=== PATIENT | male | born 1985 | race African-American/Black ===

== ENCOUNTER 2017-01-01 16:59 | Emergency (ER) | payer SELFPAY ==
[2017-01-01 17:26] VITALS: BP 133/109; BMI 33.9
--- NOTE | 2017-01-01 19:23 | DR.RASH ---
HPI - Time Seen Time seen: 19:10 - PCP Primary Care Physician: NFD - Complaint Chief Complaint:: PT C/O HIS SKIN BEING SENSITIVE AND A COLLECTION OF BUMPS TO HIS RIGHT UPPER ABD,, Onset of Chief Complaint: 12/30/16 Self Treatment fo Chief Complaint: GOLD SANCHEZ CREAM AND POWDER,, - Source History Provided: Patient - Mode of Arrival Mode of Arrival: Ambulatory PMH - PM Past Medical History: Yes Past Medical History: Hypertension Past Medical History Comment: NON- COMPLIANT.. Past Surgical History: No - Family History History of Family Medical Conditions: No - Social History Does patient currently use any type of tobacco product: Yes Have you used tobacco products in the last 12 months: Yes Type of Tobacco Use: Cigars How many years tobacco product used: 2 Does any household member use tobacco: No Alcohol Use: None Do you use any recreational Drugs:: No Lives With: Family Lives Where: Home - infectious screening In the last 2 months have you had wt loss of >10#?: NO Have you had fever, night sweats or hemotysis?: No Have you traveled outside the country in the last 6 months?: No Isolation: Airborn/Negative Pressure ROS - Review of Systems Eyes: No Symptoms Reported ENTM: No Symptoms Reported Respiratoy: No Symptoms Reported Cardiovascular: No Symptoms Reported Gastrointestinal/Abdominal: No Symptoms Reported Genitourinary: No Symptoms Reported Neurological: No Symptoms Reported Musculoskeletal: No Symptoms Reported Integumentary: Rash (right flank) Hematologic/Lymphatic: No Symptoms Reported Endocrine: No Symptoms Reported Psychiatric: No Symptoms Reported All Other Systems: Reviewed and Negative PE - Vital Signs Vitals: Pulse Rate 89 Respiratory Rate 20 Blood Pressure 133/109 O2 Sat by Pulse Oximetry 97 - General Limitations: No Limitations General Appearance: Alert, In No Apparent Distress - Head Head Exam: Normal Inspection, Atraumatic - Eyes Eye exam: Normal Appearance, PERRL, EOMI - ENT ENT Exam: Normal Exam External Ear Exam: Normal External Inspection TM/Canal Exam: Bilateral Normal Nasal Speculum Exam: Bilateral Normal Mouth Exam: Normal Inspection Teeth Exam: Normal Inspection - Neck Neck Exam: Normal Inspection, Full ROM - Chest Chest Inspection: Normal Inspection, Symmetric Chest Wall Rise - Respiratory Respiratory Exam: Normal Lung Sounds Bilat Respiratory Exam: Bilateral Clear to Auscultation - Cardiovascular Cardiovascular Exam: Regular Rate, Normal Rhythm - Extremities Extremities Exam: Normal Inspection, Full ROM - Back Back Exam: Normal Inspection - Neurologic Neurological Exam: Alert, Oriented X3, CN II-XII Intact - Psychiatric Psychiatric Exam: Normal Affect - Skin Skin Exam: Warm, Dry, Intact Type of Lesion: Rash (right anterior lateral chest wall) Distribution: Chest Description: Macular, Papular - Diagnosis Discharge Problem: Dermatitis - Discharge Plan Condition: Stable - Follow ups/Referrals Follow ups/Referrals: NFD,None [Primary Care Provider] - 3 days - Instructions
== END 2017-01-01 19:30 | disposition home or self-care (01) ==
LOC: ER 17:38
DX: L30.8 Other specified dermatitis (principal)
CPT/HCPCS: 99281; 99282

== ENCOUNTER 2018-02-18 03:58 | Observation (INO) ==
[2018-02-18 04:15] VITALS: BMI 33.9
--- NOTE | 2018-02-18 04:19 | RAD ---
Chest, one view Indication: Chest pain Comparison: None Findings: The heart is normal in size and the lungs are clear. No pleural effusion or pneumothorax is identified. There is no acute osseous abnormality. Impression: No acute chest process. Reported By:
[2018-02-18 04:36] LABS: BASOPHILS # (AUTO) 0.4 X10^3/uL (0.0-0.1); BASOPHILS % (AUTO) 3.4 % (0.2-1.0); EOSINOPHILS # (AUTO) 0.5 x10^3/uL (0.0-0.2); EOSINOPHILS % (AUTO) 4.4 % (0.9-2.9); HEMATOCRIT 45.9 % (42.0-54.0); HEMOGLOBIN 14.9 g/dL (13.5-18.0); LYMPHOCYTES % (AUTO) 16.4 % (21.0-51.0); MEAN CORPUSCULAR HGB CONC 32.4 g/dL (33.0-35.0); MEAN CORPUSCULAR VOLUME 83.3 fL (80.0-100.0); MEAN PLATELET VOLUME 7.8 fL (7.4-11.0); MONOCYTES # (AUTO) 1.2 x10^3/uL (0.3-0.8); MONOCYTES % (AUTO) 9.8 % (0.0-13.0); PLATELET COUNT 258 X10^3/uL (150.0-450.0); RED BLOOD COUNT 5.51 X10^6/uL (4.7-6.0); RED CELL DISTRIBUTION WIDTH 13.9 % (11.6-16.5); WHITE BLOOD COUNT 12.1 X10^3/uL (3.6-10.0)
[2018-02-18 04:50] LABS: BLOOD UREA NITROGEN 15 mg/dL (7-18); CALCIUM 8.9 mg/dL (8.5-10.1); CARBON DIOXIDE 28.8 mmol/L (21-32); CHLORIDE 104 mmol/L (98-107); CREATININE 1.21 mg/dL (0.70-1.30); SODIUM 141 mmol/L (136-145); TROPONIN I < 0.02 ng/mL (0-1.5); eGFR NON BLACK RACES > 60 (>60)
--- NOTE | 2018-02-18 04:52 | DR.CP ---
HPI Time Seen Time Seen by Provider: 02/18/18 04:05 PCP Primary Care Physician: RICKY Complaint Chief Complaint Doctor Comments: Patient presents with complaint of chest pain on yesterday that hurts when he moves He took two aspirins upon awakening. Most recent chest pain episode was one month ago in [place] with a negative workup. This has been ongoing for six years with no previous hospitalizations and a negative stress test. He admits to real heart burn. 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 Chief Complaint:: "I WOKE UP WITH CHEST PAIN, REAL BAD HEART BURN , A LITTLE BIT OF A HEADACHE AND FEEL LIKE I CAN'T BREATHE." Source History Provided: Patient Mode of Arrival Mode of Arrival: Ambulatory Timing Onset of Chief Complaint: 02/18/18 Location Chest Pain Radiation Location: None Associated Signs and Symptoms Associated Signs and Symptoms: Shortness of Breath PMH PMH Past Medical History: Yes Past Medical History: Hypertension Past Surgical History: No Family History History of Family Medical Conditions: Yes Family Medical History: Diabetes Mellitus, Coronary Artery Disease and Hypertension Family Medical History Comment: OPEN HEART SURGERY-MOTHER Social History Type of Tobacco Use: Cigarettes Does any household member use tobacco: No Alcohol Use: Occasionally Do you use any recreational Drugs:: No Lives Where: Home infectious screening Have you traveled outside the country in the last 6 months?: No Isolation: Standard PE Vitals Vitals: Temperature 98.2 F Pulse Rate [Left Brachial] 73 Pulse Rate [Apical] 71 Pulse Rate 90 Respiratory Rate 20 Blood Pressure [Left Arm] 135/79 Blood Pressure 166/117 O2 Sat by Pulse Oximetry 98 General Limitations: No Limitations General Appearance: Alert and In No Apparent Distress Head Head Exam: Normal Inspection, Atraumatic and Normocephalic Eyes Eye exam: Normal Appearance, PERRL and EOMI ENT ENT Exam: Normal Exam, Normal Oropharynx, Normal External Ear Exam and Mucous Membranes Moist Chest Chest Inspection: Normal Inspection and Symmetric Chest Wall Rise Respiratory Respiratory Exam: Normal Lung Sounds Bilat Respiratory Exam: Bilateral: Clear to Auscultation Cardiovascular Cardiovascular Exam: Regular Rate and Normal Rhythm Pulse: Normal Abdominal Exam Abdominal Exam: Normal Inspection, Normal Bowel Sounds and Soft Extremities Extremities Exam: Normal Inspection and Full ROM Back Back Exam: Normal Inspection and Full ROM Neurologic Neurological Exam: Alert, Oriented X3 and CN II-XII Intact Psychiatric Psychiatric Exam: Normal Affect and Normal Mood Skin Skin Exam: Warm, Dry and Intact COURSE Treatment Treatment: chest pain protocol Reevaluation 1st: Improved Consultation Called: 05:10 Consultation Comments: Dr. Tabares agreed to admit for chest pain protocol ROR Labs Reviewed Result Diagrams: 02/18/18 04:20 02/18/18 04:20 Laboratory: WBC 12.1 X10^3/uL (3.6-10.0) H 02/18/18 04:20 RBC 5.51 X10^6/uL (4.7-6.0) 02/18/18 04:20 Hgb 14.9 g/dL (13.5-18.0) 02/18/18 04:20 Hct 45.9 % (42.0-54.0) 02/18/18 04:20 MCV 83.3 fL (80.0-100.0) 02/18/18 04:20 MCH 27.0 pg (27.0-34.0) 02/18/18 04:20 MCHC 32.4 g/dL (33.0-35.0) L 02/18/18 04:20 RDW 13.9 % (11.6-16.5) 02/18/18 04:20 Plt Count 258 X10^3/uL (150.0-450.0) 02/18/18 04:20 MPV 7.8 fL (7.4-11.0) 02/18/18 04:20 Neut % (Auto) 66.0 % (42.0-75.0) 02/18/18 04:20 Lymph % (Auto) 16.4 % (21.0-51.0) L 02/18/18 04:20 [place] % (Auto) 9.8 % (0.0-13.0) 02/18/18 04:20 Eos % (Auto) 4.4 % (0.9-2.9) H 02/18/18 04:20 Baso % (Auto) 3.4 % (0.2-1.0) H 02/18/18 04:20 Neut # (Auto) 8.0 x10^3/uL (2.2-4.8) H 02/18/18 04:20 Lymph # (Auto) 2.0 X10^3/uL (1.3-2.9) 02/18/18 04:20 [place] # (Auto) 1.2 x10^3/uL (0.3-0.8) H 02/18/18 04:20 Eos # (Auto) 0.5 x10^3/uL (0.0-0.2) H 02/18/18 04:20 Baso # (Auto) 0.4 X10^3/uL (0.0-0.1) H 02/18/18 04:20 Absolute Nucleated RBC 0.1 /100WBC 02/18/18 04:20 INR Target Range - 02/18/18 04:20 INR 0.94 (0.8-1.3) 02/18/18 04:20 APTT 28.8 SECONDS (22.9-36.5) 02/18/18 04:20 PTT Comment - 02/18/18 04:20 Sodium 141 mmol/L (136-145) 02/18/18 04:20 Corrected Sodium TNP 02/18/18 04:20 Potassium 3.6 mmol/L (3.5-5.1) 02/18/18 04:20 Chloride 104 mmol/L (98-107) 02/18/18 04:20 Carbon Dioxide 28.8 mmol/L (21-32) 02/18/18 04:20 BUN 15 mg/dL (7-18) 02/18/18 04:20 Creatinine 1.21 mg/dL (0.70-1.30) 02/18/18 04:20 Est GFR (MDRD) Af Amer > 60 (>60) 02/18/18 04:20 Est GFR (MDRD) Non-Af > 60 (>60) 02/18/18 04:20 Glucose 92 mg/dL (65-99) 02/18/18 04:20 Calcium 8.9 mg/dL (8.5-10.1) 02/18/18 04:20 Corrected Calcium TNP 02/18/18 04:20 Magnesium 2.1 mg/dL (1.7-2.9) 02/18/18 04:20 Total Bilirubin 0.10 mg/dL (0.2-1.0) L 02/18/18 04:20 AST 22 Units/L (15-37) 02/18/18 04:20 ALT 42 Units/L (12-78) 02/18/18 04:20 Alkaline Phosphatase 96 Units/L (46-116) 02/18/18 04:20 Creatine Kinase 562 Units/L (39-308) H 02/18/18 16:11 CK-MB (CK-2) < 1.0 ng/mL (0-4.0) 02/18/18 16:11 CK/CKMB % Calc 0.2 % (<4) 02/18/18 16:11 Troponin I < 0.02 ng/mL (0-1.5) 02/18/18 16:11 Total Protein 8.0 g/dL (6.4-8.2) 02/18/18 04:20 Albumin 3.9 g/dL (3.4-5.0) 02/18/18 04:20 Globulin 4.1 g/dL (2.5-4.5) 02/18/18 04:20 Albumin/Globulin Ratio 1.0 Ratio (1.1-2.1) L 02/18/18 04:20 XRAY XRAY Interpreted by: Radiologist XRAY Findings: Chest: heart normal size, lungs clear,netg pleural effusion; no acute proc Diagnosis Discharge Problem: Chest pain Qualifiers: Chest pain type: unspecified Qualified Code(s): R07.9 - Chest pain, unspecified Instructions Instructions: Nonspecific Chest Pain, [id number] Acute Pain, Adult
[2018-02-18 04:54] LABS: ALANINE AMINOTRANSFERASE 42 Units/L (12-78); ALBUMIN 3.9 g/dL (3.4-5.0); ALKALINE PHOSPHATASE 96 Units/L (46-116); ASPARTATE AMINO TRANSFERASE 22 Units/L (15-37); CKMB % 0.2 % (<4); CREATINE KINASE 669 Units/L (39-308); CREATINE KINASE MB 1.2 ng/mL (0-4.0); MAGNESIUM 2.1 mg/dL (1.7-2.9)
[2018-02-18] MEDS ORDERED: ASPIRIN 81 MG CHEWTAB ONE (05:23)
[2018-02-18] MEDS ORDERED: ASPIRIN 81 MG CHEWTAB PO ONE (05:25)
[2018-02-18] MEDS ORDERED: PREVNAR 13 IM ONE ×2 (09:00→17:48)
[2018-02-18] MEDS ORDERED: NICOTINE PATCH TD SCH (09:00)
[2018-02-18] MEDS ORDERED: FLUVIRIN IM ONE ×2 (09:00→17:48)
[2018-02-18] MEDS ORDERED: ZESTRIL TAB 40 MG PO SCH (09:00)
[2018-02-18] MEDS ORDERED: MAALOX or MYLANTA PO PRN (09:40)
[2018-02-18 10:47] LABS: CKMB % 0.2 % (<4); CREATINE KINASE 598 Units/L (39-308); CREATINE KINASE MB < 1.0 ng/mL (0-4.0); TROPONIN I < 0.02 ng/mL (0-1.5)
[2018-02-18 16:41] LABS: CKMB % 0.2 % (<4); CREATINE KINASE 562 Units/L (39-308); CREATINE KINASE MB < 1.0 ng/mL (0-4.0); TROPONIN I < 0.02 ng/mL (0-1.5)
[2018-02-18 16:46] VITALS: BP 135/79
[2018-02-18] MEDS ORDERED: CHECK PATCH XX SCH (21:00)
--- NOTE | 2018-02-25 21:36 | DR.CARTERS ---
Short Stay Summary - Admission Date Date of Admission: 02/18/18 - Discharge Date Discharge Date: 02/18/18 - Admission Diagnoses (1) Chest pain Status: Acute (2) Hypertension Status: Acute - Hospital Course Hospital Course: IS A 32 YEAR OLD BLACK MALE WHO PRESENTED TO THE ER WITH COMPLAINTS OF CHEST PAIN, HEACHACHE, AND SHORTNESS OF BREAHT. HE REPORTED THAT PAIN HAS BEEN ONGOING FOR A MONTH, BUT HAS BEEN WORSE YESTERDAY AND TODAY. ON ARRIVAL, VITALS WERE 97.2-90-18-99%-166/117. LABS WERE OBTAINED. ABNORMAL LAB VALUES INCLUDE THE FOLLOWING: WBC 12.1, TOTAL BILI 0.10, CREATINE KINASE 669. CHEST XRAY OBTAINED AND REVEALED: NO ACUTE CHEST PROCESS. EKG REVEALED: SINUS RHYTHM WITH HR 84. HE WAS GIVEN ASA 324MG PO X 1 IN THE ER AND ADMITTED FOR FURTHER EVALUATION AND TX OF CHEST PAIN RULE OUT ACUTE [place] AND HYPERTENSION. WE PLANNED TO OBTAIN SERIAL CARDIAC ENZYMES AND EKGS. ON MORNING ROUNDS, PATIENT REPORTED FEELING WELL AND DENIED CHEST PAIN OR SHORTNESS OF BREATH. VITALS WERE 98.6-67-18-97%-134/84. CARDIAC ENZYMES AND EKGS REMAINED STABLE. WE PLANNED FOR DISCHARGE. INSTRUCTIONS FOR MEDICATIONS AND FOLLOW UP WERE DISCUSSED WITH PATIENT. HE VERBALIZED UNDERSTANDING. HE WAS INSTRUCTED TO FOLLOW UP WITH HIS PRIMARY CARE PHYSICAN AND TO CONTINUE HOME MEDICATIONS. HE WAS DISCHARGE HOME WITH FAMILY IN STABLE CONDITION. - Discharge Medications Discharge Medications: Home Medication List lisinopril 40 mg PO QDAY 02/18/18 [History] nicotine 1 patch TRANSDERMAL Q24H 30 Days #30 ea 02/18/18 [Rx] omeprazole magnesium [Prilosec OTC] 40 mg PO QDAY 02/18/18 [History] Prescriptions: [place] - Discharge Plan Disposition: 01 HOME, SELF-CARE Condition: Stable Prescriptions: nicotine 1 patch TRANSDERMAL Q24H 30 Days #30 ea - Follow up/Referrals Follow up/Referrals: SUAD GARCÍA [STAFF PHYSICIAN] - 02/23/18 (call office in [place], [place] for follow up appointment. ) NFD,None [STAFF PHYSICIAN] - 3 days - Instructions Instructions: Nonspecific Chest Pain, [id number], Acute Pain, Adult Additional Instructions: DIET TOLERATED low fat,low cholestrol diet . ACTIVITY TOLERATED.
== END 2018-02-18 18:30 | disposition home or self-care (01) ==
LOC: ER 04:02 → MED/SURG 04:02
PROVIDERS: ADMIT Internal Medicine; ATTEND Internal Medicine
DX: D72.828 Other elevated white blood cell count; I10 Essential (primary) hypertension; R94.31 Abnormal electrocardiogram [ECG] [EKG]; E11.65 Type 2 diabetes mellitus with hyperglycemia; Z79.899 Other long term (current) drug therapy; R51 Headache; R06.02 Shortness of breath; I25.10 Atherosclerotic heart disease of native coronary artery without angina pectoris; Z23 Encounter for immunization; R07.89 Other chest pain
CPT/HCPCS: 36415; 71010; 71045; 80053; 82550; 82553; 83735; 84484; 85025; 85610; 85730; 90686; 93005; 94760; 96365; 96372; 99284; A4216; A4222; 90670; G0378